=== PATIENT | female | born 1985 | race Caucasian/White ===

== ENCOUNTER 2016-12-07 05:30 | Day surgery (SDC) | payer OTHER ==
[~2016-12-07] VITALS: Ht 160 cm; Wt 68.0 kg
[2016-12-07 05:45] LABS: HCG,QUAL RESULT NEGATIVE (NEGATIVE)
[2016-12-07] MEDS ORDERED: LR 1,000 ML IV.SOLN IV ONE (07:19)
[2016-12-07] MEDS ORDERED: SEVOFLURANE 15 MIN GAS INH ONE (07:19)
[2016-12-07] MEDS ORDERED: fentaNYL CITRATE/PF 100 MCG/2 ML AMP IVP ONE (07:19)
[2016-12-07] MEDS ORDERED: MIDAZOLAM HCL 5 MG/5 ML VIAL IVP ONE (07:19)
[2016-12-07] MEDS ORDERED: PROPOFOL 200MG/ 20ML VIAL (DIPRIVAN) IV ONE (07:19)
[2016-12-07] MEDS ORDERED: METOCLOPRAMIDE HCL 10 MG/2 ML VIAL IVP ONE (07:19)
[2016-12-07] MEDS ORDERED: DEXAMETHASONE SOD PHOSPHATE 4 MG/ML VIAL IVP ONE (07:19)
[2016-12-07] MEDS ORDERED: ROCURONIUM BROMIDE 10 MG/ML (ZEMURON) IV ONE (07:19)
[2016-12-07] MEDS ORDERED: NS IRRIG SOLN 1000 ML IR ONE (07:19)
[2016-12-07] MEDS ORDERED: LR 1,000 ML IV ONE (08:21)
[2016-12-07] MEDS ORDERED: ePHEDrine sulfate 50 MG/ML VIAL IVP PRN (08:30)
[2016-12-07] MEDS ORDERED: ONDANSETRON HCL 4 MG/2 ML VIAL IVP PRN ×2 (08:30)
[2016-12-07] MEDS ORDERED: DIPHENHYDRAMINE INJ 50 MG/ML VIAL IVP PRN (08:30)
[2016-12-07] MEDS ORDERED: NALBUPHINE HCL 10 MG/ML AMP IVP PRN (08:30)
[2016-12-07] MEDS ORDERED: fentaNYL CITRATE/PF 100 MCG/2 ML AMP IVP PRN (08:30)
[2016-12-07] MEDS ORDERED: NALOXONE HCL 0.4 MG/ML AMP (NARCAN) IVP PRN (08:30)
[2016-12-07 10:51] VITALS: BP_SYST 133
== END 2016-12-07 10:45 | disposition home or self-care (01) ==
LOC: SMU 05:30 → SDS 05:30
PROVIDERS: ATTEND Otolaryngology
DX: J34.2 Deviated nasal septum (principal); J34.89 Other specified disorders of nose and nasal sinuses; F17.200 Nicotine dependence, unspecified, uncomplicated
CPT/HCPCS: 30140; 30520; 84703; 88305; J1100; J2250; J2704; J2765; J3010; J7120